=== PATIENT | female | born 1975 ===

== ENCOUNTER 2023-02-25 06:00 | Outpatient (RCR) | payer OTHER, SELFPAY | END 2023-03-09 23:59 | disposition home or self-care (01) | LOC: SPT 06:00 | PROVIDERS: Visit Provider Internal Medicine | DX: M72.2 Plantar fascial fibromatosis (principal) | CPT/HCPCS: 97140; 97161; 97530 ==

== ENCOUNTER 2023-03-10 06:00 | Outpatient (RCR) | payer OTHER, SELFPAY | END 2023-04-09 23:59 | disposition home or self-care (01) | LOC: SPT 06:00 | PROVIDERS: Visit Provider Internal Medicine | DX: M72.2 Plantar fascial fibromatosis (principal) | CPT/HCPCS: 97110; 97140; 97530 ==

== ENCOUNTER 2023-05-10 06:00 | Outpatient (RCR) | payer OTHER, SELFPAY | END 2023-06-04 23:59 | disposition home or self-care (01) | LOC: SPT 06:00 | PROVIDERS: Visit Provider Internal Medicine | DX: M72.2 Plantar fascial fibromatosis (principal) | CPT/HCPCS: 97140 ==

== ENCOUNTER 2023-12-28 06:00 | Outpatient (RCR) | payer OTHER, SELFPAY | END 2024-01-08 23:59 | disposition home or self-care (01) | LOC: SPT 06:00 | PROVIDERS: Visit Provider Orthopaedic Surgery | DX: M75.00 Adhesive capsulitis of unspecified shoulder (principal); M25.511 Pain in right shoulder | CPT/HCPCS: 97110; 97140; 97161 ==